=== PATIENT | female | born 1945 | race Caucasian/White ===

== ENCOUNTER → 2022-02-27 | Outpatient (CLI) | payer MEDICARE, BC | LOC: VAS 07:46 → RAD 07:46 | DX: M71.22 Synovial cyst of popliteal space [Baker], left knee (principal); Z86.718 Personal history of other venous thrombosis and embolism ==

== ENCOUNTER → 2022-04-12 | Outpatient (CLI) | payer MEDICARE, BC | LOC: RAD 15:18 | DX: M47.816 Spondylosis without myelopathy or radiculopathy, lumbar region (principal); M51.36 Other intervertebral disc degeneration, lumbar region; T79.2XXS Traumatic secondary and recurrent hemorrhage and seroma, sequela | CPT/HCPCS: A9585 ==

== ENCOUNTER → 2022-05-17 | Outpatient (CLI) | payer MEDICARE, BC | LOC: RAD 15:45 | DX: M54.6 Pain in thoracic spine (principal) ==

== ENCOUNTER → 2024-06-30 | Outpatient (CLI) | payer MEDICARE, BC ==
[~2024-06-30] MED LIST: Gadoterate 20 ML VIAL IV ONE
== END ==
LOC: RAD 13:47
DX: I67.82 Cerebral ischemia (principal); H90.3 Sensorineural hearing loss, bilateral; Z86.73 Personal history of transient ischemic attack (TIA), and cerebral infarction without residual deficits
CPT/HCPCS: A9575